=== PATIENT | male | born 1950 | race Caucasian/White ===

== ENCOUNTER 2021-01-15 07:42 | Outpatient (CLI) | payer MEDICARE | END 2021-01-15 07:43 | disposition home or self-care (01) | LOC: CSHULT 07:42 | PROVIDERS: ATTEND Urology | DX: N20.0 Calculus of kidney (principal) | CPT/HCPCS: 76770 ==

== ENCOUNTER 2021-10-27 15:07 | Outpatient (CLI) | payer MEDICARE | END 2021-10-27 15:08 | disposition home or self-care (01) | LOC: CSHCT 15:07 | PROVIDERS: ATTEND Urology | DX: N13.2 Hydronephrosis with renal and ureteral calculous obstruction (principal); N21.0 Calculus in bladder | CPT/HCPCS: 74176 ==

== ENCOUNTER 2023-02-09 12:38 | Outpatient (CLI) | payer MEDICARE | END 2023-02-09 12:39 | disposition home or self-care (01) | LOC: CSHCT 12:38 | PROVIDERS: ATTEND Urology | DX: N20.0 Calculus of kidney (principal); K57.30 Diverticulosis of large intestine without perforation or abscess without bleeding | CPT/HCPCS: 74176 ==